=== PATIENT | male | born 1955 | race Caucasian/White ===

== ENCOUNTER 2016-08-20 14:08 | Inpatient (IN) | payer OTHER ==
[~2016-08-20 14:08] MED LIST: LIDOCAINE 2% SYR 5 ML IV ONE; PROPOFOL 50ML VIAL IV ONE
[2016-08-20] MEDS ORDERED: GLUCAGON 1 MG VIAL IM PRN (18:10)
[2016-08-20] MEDS ORDERED: SALINE FLUSH 10 ML FLUSH PRN (18:10)
[2016-08-20] MEDS ORDERED: DEXTROSE 50% SYRINGE 50 ML IV PRN (18:10)
[2016-08-20] MEDS ORDERED: ONDANSETRON 4 MG VIAL IV PRN (18:10)
[2016-08-20 19:20] VITALS: BP_SYST 106; BP_SYST 110; RESP 20; TEMP 98.1
[2016-08-20] MEDS: DULoxetine 30 MG CAP PO SCH (19:25)
[2016-08-20] MEDS: PANTOPRAZOLE 80 MG in SODIUM CHLORIDE 0.9% 250 ML IV SCH (20:35)
[2016-08-20] MEDS: MONTELUKAST 10 MG TAB PO SCH (20:37)
[2016-08-20] MEDS: SALINE FLUSH 10 ML FLUSH SCH (20:37)
[2016-08-20 20:47] VITALS: Wt 99.0 kg
[2016-08-20] MEDS: SODIUM CHLORIDE 0.9% 1,000 ML IV SCH (21:00)
[2016-08-20 22:09] VITALS: BP_SYST 99; RESP 18; TEMP 98.9
[2016-08-20 22:12] VITALS: RESP 20
[2016-08-20 22:43] VITALS: BP_SYST 100; RESP 18; TEMP 98.8
[2016-08-20 22:58] VITALS: BP_SYST 99; RESP 18; TEMP 98.8
[2016-08-20 23:58] VITALS: BP_SYST 101; RESP 18; TEMP 98.9
[2016-08-21] VITALS (18 sets, daily range): BP systolic 93–115; RESP 13–100; TEMP 97.9–99.3
[2016-08-21] MEDS: ZOLPIDEM 5 MG TAB PO PRN (00:13)
[2016-08-21] MEDS: SODIUM CHLORIDE 0.9% FLUSH BAG 500 ML IV SCH (05:21)
[2016-08-21] MEDS: PANTOPRAZOLE 80 MG in SODIUM CHLORIDE 0.9% 250 ML IV SCH ×2 (06:33→15:44)
[2016-08-21] MEDS: SALINE FLUSH 10 ML FLUSH SCH ×2 (08:49→19:59)
[2016-08-21] MEDS: DULoxetine 30 MG CAP PO SCH (09:00)
[2016-08-21] MEDS ORDERED: PEG/E-LYTE 4,000 ML BTL PO ONE (14:00)
[2016-08-21] MEDS: SODIUM CHLORIDE 0.9% 1,000 ML IV SCH (15:44)
[2016-08-21] MEDS: Furosemide 20 MG TAB PO SCH (16:15)
[2016-08-21] MEDS ORDERED: IRON SUCROSE COMPLEX 500 MG in SODIUM CHLORIDE 0.9% 250 ML IV ONE (16:15)
[2016-08-21] MEDS: TAMSULOSIN 0.4 MG CAP PO SCH (16:15)
[2016-08-21] MEDS ORDERED: MAG CIT SOLN 300 ML PO ONE (16:40)
[2016-08-21] MEDS: MONTELUKAST 10 MG TAB PO SCH (19:59)
[2016-08-21] MEDS: FAMOTIDINE 20 MG TAB PO SCH (19:59)
[2016-08-21] MEDS ORDERED: BUPROPION SR 150 MG TAB PO SCH (21:00)
[2016-08-21] MEDS ORDERED: Atorvastatin 20 MG TAB PO SCH (21:00)
[2016-08-21] MEDS ORDERED: ASPIRIN 81 MG CHEW TAB PO SCH (21:00)
[2016-08-22] VITALS (9 sets, daily range): BP systolic 107–128; RESP 16–18; TEMP 97.9–99.7
[2016-08-22] MEDS: SODIUM CHLORIDE 0.9% 1,000 ML IV SCH (00:25)
[2016-08-22] MEDS: SODIUM CHLORIDE 0.9% FLUSH BAG 500 ML IV SCH (00:29)
[2016-08-22] MEDS: ZOLPIDEM 5 MG TAB PO PRN (00:37)
[2016-08-22] MEDS: PANTOPRAZOLE 80 MG in SODIUM CHLORIDE 0.9% 250 ML IV SCH ×2 (02:04→12:20)
[2016-08-22] MEDS ORDERED: PEG/E-LYTE 4,000 ML BTL PO ONE (04:00)
[2016-08-22] MEDS ORDERED: MAG CIT SOLN 300 ML PO ONE (04:00)
[2016-08-22] MEDS: ACETAMINOPHEN 325 MG TAB PO PRN ×2 (04:15→08:27)
[2016-08-22] MEDS: FAMOTIDINE 20 MG TAB PO SCH (08:27)
[2016-08-22] MEDS: DULoxetine 30 MG CAP PO SCH (08:27)
[2016-08-22] MEDS: TAMSULOSIN 0.4 MG CAP PO SCH (08:27)
[2016-08-22] MEDS: SALINE FLUSH 10 ML FLUSH SCH (08:28)
[2016-08-22] MEDS: Furosemide 20 MG TAB PO SCH (08:28)
[2016-08-22] MEDS ORDERED: KCL CR 10 MEQ CAP PO ONE (10:05)
[2016-08-22] MEDS ORDERED: IRON SUCROSE COMPLEX 500 MG in SODIUM CHLORIDE 0.9% 250 ML IV ONE (10:05)
[2016-08-22] MEDS ORDERED: KCL CR 10 MEQ CAP PO SCH (21:00)
== END 2016-08-22 14:52 | disposition home or self-care (01) | DRG 812 ==
LOC: ENRESERVTM → ENRESERVDT → ER 14:08 → EMR 18:10 → ENPENDDIS 18:10 → PCU 19:16
PROVIDERS: ADMIT Family Medicine; ATTEND Family Medicine
PROC: 0DB68ZX Excision of Stomach, Via Natural or Artificial Opening Endoscopic, Diagnostic (ICD-10-PCS; principal; 2016-08-21 14:05)
DX: D50.9 Iron deficiency anemia, unspecified (principal); K92.2 Gastrointestinal hemorrhage, unspecified; F32.9 Major depressive disorder, single episode, unspecified; J44.9 Chronic obstructive pulmonary disease, unspecified; Z87.820 Personal history of traumatic brain injury; E11.9 Type 2 diabetes mellitus without complications; Z82.49 Family history of ischemic heart disease and other diseases of the circulatory system; Z79.82 Long term (current) use of aspirin; E86.1 Hypovolemia; I69.311 Memory deficit following cerebral infarction
CPT/HCPCS: 36415; 36430; 71010; 80048; 80053; 82274; 82553; 82607; 82746; 82947; 83540; 83880; 84466; 84484; 85025; 85379; 86850; 86900; 86901; 86923; 87804; 88305; 93005; 94799; 96360; 99222; 99233; 99239